=== PATIENT | male | born 1945 | race Hispanic/Latino ===

== ENCOUNTER 2019-04-27 23:34 | Emergency (ER) | payer BC, MEDICARE ==
[~2019-04-27 23:34] MED LIST: LEVO150 PO; ROSU5TAB PO; VALS160T2 PO
== END 2019-04-28 00:40 | disposition home or self-care (01) ==
LOC: EDH 23:34
DX: S50.01XA Contusion of right elbow, initial encounter (principal); M70.31 Other bursitis of elbow, right elbow; X58.XXXA Exposure to other specified factors, initial encounter; Y93.89 Activity, other specified; Y92.098 Other place in other non-institutional residence as the place of occurrence of the external cause; Y99.8 Other external cause status
CPT/HCPCS: 73080; 73221

== ENCOUNTER → 2022-01-16 | Outpatient (CLI) | payer BC | END | disposition home or self-care (01) | LOC: LAB 08:19 | PROVIDERS: ATTEND Internal Medicine Cardiovascular Disease | DX: Z20.822 Contact with and (suspected) exposure to COVID-19 (principal) | CPT/HCPCS: 87635; C9803 ==